=== PATIENT | male | born 1995 | race Caucasian/White ===

== ENCOUNTER 2020-11-05 17:32 | Emergency (ER) | payer SELFPAY ==
--- NOTE | 2020-11-05 18:09 | EDM.PDOC ---
ED HPI GENERAL MEDICAL PROBLEM - General Chief Complaint: Neuro Symptoms/Deficits Stated Complaint: [facility] Time Seen by Provider: 11/05/20 17:40 Source of Information: Reports: Patient, EMS History Limitations: Reports: No Limitations - History of Present Illness INITIAL COMMENTS - FREE TEXT/NARRATIVE: 25-year-old male presents to the ED per [facility]. Patient appreciated that he started to feel unwell shortly before noon hour today. He started to feel nauseated and had a sense of swimmy vision and like the world was spinning a bit around him. He thought that his blood sugar might be low and he did proceed into a restaurant and had a Coke and ate dinner and felt somewhat better. Later this afternoon he developed similar episode x2. The last time he was very close to vomiting but never did. Paramedics were summoned and they identified his blood pressure initially to be normal. Once he stood up and he got vertigo symptoms again and his blood pressure went up which concerned the paramedics and the they therefore brought him to [place] for evaluation. He has a large 25-year-old male. He reports that he did have a cold about a month ago and continues to have muffled hearing on the left ear. He does feel nasally congested as well. There are some concern that he may have had COVID-19 illness as well although this has not been clarified. He has no cough. Second problem that he spoke about was recurrent problems with bright red rectal bleeding intermittently for the last month. This is almost always with a bowel movement but sometimes can occur after a bowel movement and just be lennox blood. Of note all bowel movements are painless. States for the most part his stools are soft. They are not diarrhea and occasionally a bit firm and difficult to pass. Note the patient has no signs or symptoms of nausea or vertigo symptoms if he is lying still. They only occur when he sits up and moves his head or neck. Onset: Today, Sudden Onset Date: 11/05/20 Onset Time: 11:45 Duration: Hour(s):, Intermittent (Occurred 3 separate times today.) Location: Reports: Other (Vertigo symptoms that occur with movement of his head or neck.) Quality: Reports: Other (Acute onset of recurrent vertigo symptoms today.) Severity: Moderate Improves with: Reports: Rest (Symptoms dissipate if he is not moving his head.) Worsens with: Reports: Movement (Movement of head or neck.) Associated Symptoms: Reports: Nausea/Vomiting (Nausea without vomiting), Other (Vertigo symptoms which he is never experienced before). Denies: Confusion, Chest Pain, Cough, cough w sputum, Headaches, Loss of Appetite, Malaise, Seizure, Shortness of Breath, Syncope, Weakness Treatments [employer] C[employer]: Reports: Other (see below) (None.) - Related Data Allergies Allergy/AdvReac Type Severity Reaction Status Date / Time No Known Allergies Allergy Verified 11/05/20 17:36 Home Meds: Home Meds Amoxicillin/Potassium Clav [Augmentin 500-125 Tablet] 1 each PO BID #20 tablet 11/05/20 [Rx] Hydrocortisone Acetate [Anusol-Hc] 25 mg RC DAILY #7 supp.rect 11/05/20 [Rx] Loratadine/Pseudoephedrine [Claritin-D 12 Hour] 1 tab PO Q12HR #10 tab.er 11/05/20 [Rx] Meclizine [Antivert] 25 mg PO Q8H PRN #15 tab 11/05/20 [Rx] Past Medical History Respiratory History: Reports: Asthma Social & Family History - Tobacco Use Tobacco Use Status *Q: Never Tobacco User - Recreational Drug Use Recreational Drug Use: No - Living Situation & Occupation Living situation: Reports: Single Occupation: Employed ED ROS GENERAL - Review of Systems Review Of Systems: See Below Constitutional: Denies: Fever, Chills, Malaise, Weakness, Fatigue, Decreased Appetite, Weight Loss HEENT: Reports: Rhinitis ( within the last month.), Sinus Problem (Really congested recently. Has a plugged left ear. There are some concerned that he may have contracted Covid), Vertigo (Element of vertigo symptoms today associate with development of nausea without vomiting.), Other (Fullness sensation in his left ear.) Respiratory: Reports: No Symptoms Cardiovascular: Reports: No Symptoms Endocrine: Reports: No Symptoms GI/Abdominal: Reports: Other (Rectal bleeding off and on for the last month. Painless.) : Reports: No Symptoms Musculoskeletal: Reports: No Symptoms Skin: Reports: No Symptoms Neurological: Reports: No Symptoms Psychiatric: Reports: No Symptoms Hematologic/Lymphatic: Reports: No Symptoms Immunologic: Reports: No Symptoms ED EXAM, DIZZINESS - Physical Exam Exam: See Below Exam Limited By: No Limitations General Appearance: Alert, WD/WN, Anxious, Mild Distress, Other (Temperature is 36.2 degrees. Heart rate 96 and sinus respiratory to 18 O2 sats 99% room air. BP 149/90 but it came down to 130/84.) Eye Exam: Right Eye: Nystagmus (Sustained right sided nystagmus on right lateral gaze.), Bilateral Eye: Normal Inspection, PERRL Nystagmus: worsens with head to R, reproducible, reversible, short duration Ears: TM Fluid (Left serous otitis media) Nose: Nasal Swelling (And has evidence of rhinitis with swelling of the superior middle turbinates bilaterally slightly worse on the left side as compared to the right. I believe the septum is straight.) Throat/Mouth: Normal Inspection, Normal Lips, Normal Teeth, Normal Oropharynx Head Exam: Atraumatic, Normocephalic Vertigo: worsens with head to R, reproducible, reversible, short duration Neck: Normal Inspection, Supple, Non-Tender, Full Range of Motion. No: Lymphadenopathy (L), Lymphadenopathy (R) Rectal (Males) Exam: Normal Rectal Tone, Prostate Normal, Hemorrhoids (Internal hemorrhoid at the 11 o'clock position on), Other (Bright red rectal bleeding which is painless off and on for the last month. Identified source to be a thrombosed internal hemorrhoid at the 11 o'clock position clinically.). No: Black Stool, Fecal Impaction, Perirectal Abscess, Rectal Fissure, Tenderness Neurological: Alert, Normal Mood/Affect, Normal Dorsiflexion, CN II-XII Intact Extremities: Normal Inspection, Normal Range of Motion, Non-Tender, No Pedal Edema Psychiatric: Normal Affect, Normal Mood Skin Exam: Warm, Dry, Intact, Normal Color, No Rash Course - Vital Signs Last Recorded V/S: Last Vital Signs Temp 36.2 C 11/05/20 17:34 Pulse 96 11/05/20 17:34 Resp 18 11/05/20 17:34 BP 149/90 H 11/05/20 17:34 Pulse Ox 99 11/05/20 17:34 - Radiology Interpretation Free Text/Narrative:: 25-year-old male presents to the ED per [facility] due to sudden onset of feeling unwell. He first noted feeling nauseated and dizzy which we interpret his vertigo as he recognized that the world in front of him seemed to be swimming [id number] and perhaps spinning slightly. He thought dinnertime that he might just be hungry since he had not had much to eat. Thought he might be having a low blood sugar. He went into a restaurant and had a Coke and something to eat and felt fine after dinner. He went back to work this afternoon. About 4:00 he experienced a similar episode of nausea with spinning sensation or vertigo. And then once again at about 5:15. He felt like he was going to vomit but never did. He therefore called the ambulance who checked him out and identified that once they stood him up his blood pressures seem to climb rather dramatically. He also recognized that he developed vertigo sympto ms again. When he was lying his blood pressure was 120/80. Blood pressures in the emergency room slowly came down once he was reassured as to what was going on. Patient has contracted an upper respiratory tract infection over the last month and still has a plugged feeling in his left ear. There is some concern that he may or may not have contracted COVID-19 illness. He has no cough. Examination revealed a left serous otitis media and nystagmus on right lateral gaze that was of short duration. It was reproducible and improved if he did not move his head or neck. Patient appears to have an acute labyrinthitis. Decision made to treat him with Augmentin 500/125 mg tablets twice daily for 10 days to clear up sinus infection and middle ear infection. Claritin-D 12-hour release 1 in the morning and 1 of 2:00 in the afternoon for the next 5 days which should clear up his vertigo. Meclizine 25 mg every 8 hours as needed as needed for vertigo symptoms. Patient also had a second problem at the time of presentation which , was by the way I am also experiencing bright red rectal bleeding on an intermittent basis off and on for the last month. All bowel movements have been painless. Stools are for the most part soft but occasionally are a bit firm. On examination he had no external hemorrhoids. He had no anal fissure. Rectal exam showed a normal prostate and I felt I could palpate a hemorrhoid internal hemorrhoid at the 11 o'clock position. He will be treated with Anusol HC suppositories per rectum every night at bedtime for the next 7 days. If he has bleeding after this or bleeding persists then he needs a at least an anoscopy of not a rigid sigmoidoscopy or colonoscopy. He was advised of this. Departure - Departure Time of Disposition: 18:01 Disposition: Home, Self-Care 01 Condition: Fair Clinical Impression: Labyrinthitis of left ear, Rectal bleeding, Internal hemorrhoid, bleeding, Vertigo - Discharge Information *PRESCRIPTION DRUG MONITORING PROGRAM REVIEWED*: Not Applicable *COPY OF PRESCRIPTION DRUG MONITORING REPORT IN PATIENT FAYE: Not Applicable Prescriptions: Meclizine [Antivert] 25 mg PO Q8H PRN #15 tab PRN Reason: Relief of vertigo Hydrocortisone Acetate [Anusol-Hc] 25 mg RC DAILY #7 supp.rect Amoxicillin/Potassium Clav [Augmentin 500-125 Tablet] 1 each PO BID #20 tablet Loratadine/Pseudoephedrine [Claritin-D 12 Hour] 1 tab PO Q12HR #10 tab.er Instructions: Labyrinthitis, [id number], Hemorrhoids, [id number] Referrals: Ananda Trevino MD [Primary Care Provider] - Forms: ED Department Discharge Additional Instructions: Evaluation in the emergency room today in regards to sudden onset of feeling very nauseated but recognizing that the world was spinning or moving in front of your eyes. We call this sensation vertigo. It is like being on a [id number] and you can get off. Usually stopping moving of the head will make the vertigo go away. However looking upwards downwards and quickly to the side will may well precipitate vertigo symptoms particularly when you look to the right side. Exam reveals that you have fluid behind your left eardrum which is causing the vertigo symptoms. When we can find a cause for it or an infectious cause because it labyrinthitis. You will need an antibiotic called Augmentin 500 mg tablet twice daily for the next 10 days to clear up middle ear infection and sinus infection. Suggest picking up some meclizine 25 mg tablets and take 1 every 8 hours as needed for vertigo symptoms. You may find within a couple of days you no longer suffer from vertigo once the antibiotic becomes effective and the decongestants are working. Prescription written for Claritin- D tablets which are decongestants and are to be taken first thing in the morning and again around 2:00 in the afternoon so as not to interfere with ability to sl eep. Use these twice daily for the next 5 days. Second problem is related to recurrent intermittent bright red rectal bleeding usually with a bowel movement which is painless. Examination reveals that you have an internal hemorrhoid at the 11 o'clock position inside the rectum. This is called an internal hemorrhoid you have no outside or external hemorrhoids and no anal fissure. Suggest using Anusol HC suppository per rectum every night at bedtime for the next 7 days to reduce the swelling of the hemorrhoid and stop the rectal bleeding. If the rectal bleeding persists after this or return shortly thereafter you should need to have follow-up with a surgeon to have a look into the rectum with the scope to make sure that internal hemorrhoids of healed and that there is no other reason to have rectal bleeding. Sepsis Event Note (ED) - Evaluation Sepsis Screening Result: No Definite Risk - Focused Exam Vital Signs: Vital Signs Temp Pulse Resp BP Pulse Ox 11/05/20 17:34 36.2 C 96 18 149/90 H 99
== END 2020-11-05 18:40 | disposition home or self-care (01) ==
LOC: JD.ED 17:32
DX: H83.02 Labyrinthitis, left ear (principal); K64.8 Other hemorrhoids; J45.909 Unspecified asthma, uncomplicated
CPT/HCPCS: 99283